=== PATIENT | female | born 1960 | race Caucasian/White ===

== ENCOUNTER 2016-12-05 14:22 | Emergency (ER) | payer OTHER ==
[2016-12-05 14:42] VITALS: BP 103/49; PULSE 79; TEMP 99.1; BMI 25.0
--- NOTE | 2016-12-05 14:58 | PDOC ---
History of Present Illness - History of Present Illness Initial Comments: 12/05/16 15:06 The patient is a 56 year old female with a PMHx of epilepsy, anxiety, PTSD, bipolar disorder who presents to the ED with anxiety, migraines and tremors for a week. The patient reports that she recently moved to [place] to take care of her grandchild. She is in the process of changing doctors and ran out of her medications last week. Since then, she had one seizure last week. She reports her seizures are usually brought on by stress. She reports that her anxiety and seizures are well controlled, but without her medication she has been very nervous. She normally is on Kepra, Topamax, and Vimpat. She denies chest pain, shortness of breath, palpitations. The patient denies fever, chills, nausea, vomiting, diarrhea, and constipation. <Melanie Adams - Last Filed: 12/05/16 15:06> <Abhay Gage - Last Filed: 12/05/16 15:33> - General Chief Complaint: RX Refill Stated Complaint: PANIC ATTACK/RAN OUT OF MEDS. Time Seen by Provider: 12/05/16 14:43 Past History <Melanie Adams - Last Filed: 12/05/16 15:06> - Past Medical History Asthma: Yes Cancer: Yes (OVARIES) GI Disorders: Yes (gerd,diverticulitis without perforation,abscess or bleeding.) Hypercholesterolemia: Yes Psychiatric Problems: Yes (aNXIETY) Other medical history: periodic headache syndrome,vitmin d deficiency - Surgical History Cholecystectomy: Yes - Psycho/Social/Smoking Cessation Hx Anxiety: Yes Suicidal Ideation: No Smoking History: Current every day smoker Number of Cigarettes Smoked Daily: 20 Information on smoking cessation initiated: No Hx Alcohol Use: No Drug/Substance Use Hx: No Substance Use Type: None <Abhay Gage - Last Filed: 12/05/16 15:33> - Past Medical History Allergies/Adverse Reactions: Allergies Allergy/AdvReac Type Severity Reaction Status Date / Time amoxicillin AdvReac Rash Verified 12/05/16 14:35 cyclobenzaprine HCl AdvReac Hives Verified 12/05/16 14:35 [From Flexeril] Home Medications: Ambulatory Orders Albuterol Sulfate Inhaler - [Ventolin HFA Inhaler -] 1 - 2 inh PO Q4H 12/05/16 Budesonide/Formeterol Fumarate [SYMBICORT 160/4.5mcg -] 2 inh PO BID 12/05/16 Chlorzoxazone [Lorzone] 750 mg PO ASDIR 12/05/16 Duloxetine HCl [Cymbalta] 30 mg PO DAILY 12/05/16 Gabapentin 600 mg PO TID 12/05/16 Lacosamide [Vimpat -] 100 mg PO BID 12/05/16 Lacosamide [Vimpat -] 100 mg PO BID #20 tablet MDD 2 12/05/16 Levetiracetam [Keppra -] 2 tab PO DAILY 12/05/16 Levetiracetam [Keppra -] 500 mg PO AM 12/05/16 Lorazepam [Ativan] 1 mg PO TID #20 tablet MDD 3 12/05/16 Lorazepam [Ativan] 1 mg PO TID PRN 12/05/16 Nicotine Patch [Nicoderm Patch -] 1 patch TD DAILY 12/05/16 Quetiapine Fumarate [Seroquel -] 200 mg PO HS 12/05/16 Topiramate [Topamax -] 200 mg PO BID 12/05/16 Review of Systems - Review of Systems Comments:: 12/05/16 15:06 CONSTITUTIONAL: Absent: fever, no chills, no fatigue EYES: Absent: visual changes ENT: Absent: ear pain, no sore throat CARDIOVASCULAR: Absent: chest pain, no palpitations RESPIRATORY: Absent: cough, no SOB GI: Absent: abdominal pain, no nausea, no vomiting, no constipation, no diarrhea GENITOURINARY: Absent: dysuria, no frequency, no hematuria MUSCULOSKELETAL: Absent: back pain, no arthralgia, no myalgia SKIN: Absent: rash NEURO: Present: migraines, seizures, tremors <Melanie Adams - Last Filed: 12/05/16 15:06> *Physical Exam - Vital Signs Last Vital Signs Temp Pulse Resp BP Pulse Ox 99.1 F 79 18 103/49 97 12/05/16 14:30 12/05/16 14:30 12/05/16 14:30 12/05/16 14:30 12/05/16 14:30 - Physical Exam Comments: 12/05/16 15:06 GENERAL: Well-appearing, well-nourished. No apparent distress. HEENT: Pupils are 4 mm, round and reactive. Normocephalic, atraumatic. EOM intact. CARDIOVASCULAR: Normal S1, S2. Regular rate and rhythm. PULMONARY: Clear to auscultation bilaterally. ABDOMEN: Soft, non-distended, non-tender. EXTREMITIES: Normal ROM in all four extremities. No gross deformities. SKIN: Warm, dry. No rash NEUROLOGICAL: No focal neurological deficits. Fully alert and oriented. <Melanie Adams - Last Filed: 12/05/16 15:06> - Vital Signs Last Vital Signs Temp Pulse Resp BP Pulse Ox 99.1 F 79 18 103/49 97 12/05/16 14:30 12/05/16 14:30 12/05/16 14:30 12/05/16 14:30 12/05/16 14:30 <Abhay Gage - Last Filed: 12/05/16 15:33> Medical Decision Making - Medical Decision Making 12/05/16 15:30 Physical exam is normal. Including complete neurologic. Pupils are 4 mm reactive , fundi benign. Patient is fully ambulatory. She states she had her first grand mal seizure in quite a while one week ago when she ran out of her. She requests a refill of that along with Ativan. She has her other medications. She is scheduled to see Dr. Emanuel first visit in 2 weeks after not having a PM[place] supply of her Vimpat and Ativan were refilled. She is encouraged to follow up with her primary physician and referred to a neurologist, being told that neurologist evaluation and ongoing treatment is mandatory. <Abhay Gage - Last Filed: 12/05/16 15:33> *DC/Admit/Observation/Transfer - Attestations Scribe Attestion: 12/05/16 15:07 Documentation prepared by Melanie Adams, acting as center medical specialist for Abhay Varela MD. <Melanie Adams - Last Filed: 12/05/16 15:06> - Discharge Dispostion Admit: No <Abhay Gage - Last Filed: 12/05/16 15:33> Diagnosis at time of Disposition: Anxiety Epilepsy Qualifiers: Epilepsy type: generalized idiopathic Intractability: not intractable Status epilepticus: without status epilepticus Qualified Code(s): G40.309 - Generalized idiopathic epilepsy and epileptic syndromes, not intractable, without status epilepticus - Discharge Dispostion Disposition: HOME Condition at time of disposition: Stable - Prescriptions Prescriptions: Lorazepam [Ativan] 1 mg PO TID #20 tablet MDD 3 Lacosamide [Vimpat -] 100 mg PO BID #20 tablet MDD 2 - Referrals Referrals: Amish Mclaughlin MD [Staff Physician] - 1 week - Patient Instructions Printed Discharge Instructions: DI for Seizure Disorder -- Adult, DI for Anxiety -- Adult Additional Instructions: You must see a neurologist as soon as possible for further examination and treatment.
== END 2016-12-05 15:28 | disposition home or self-care (01) ==
LOC: FER 14:22
DX: G40.309 Generalized idiopathic epilepsy and epileptic syndromes, not intractable, without status epilepticus (principal); F41.9 Anxiety disorder, unspecified; F43.10 Post-traumatic stress disorder, unspecified; F31.9 Bipolar disorder, unspecified; G40.909 Epilepsy, unspecified, not intractable, without status epilepticus; J45.909 Unspecified asthma, uncomplicated; Z85.43 Personal history of malignant neoplasm of ovary; F17.210 Nicotine dependence, cigarettes, uncomplicated
CPT/HCPCS: 99281-25

== ENCOUNTER 2019-02-04 18:04 | Inpatient (IN) | payer OTHER ==
[2019-02-04] MEDS ORDERED: ACETAMINOPHEN INJECTION 100 ML IVPB ONE (18:42)
[2019-02-04] MEDS ORDERED: ACETAMINOPHEN 1000 MG/100 ML VIAL (NON FORMULARY) IVPB ONE (18:42)
[2019-02-04 18:59] LABS: BASO % 0.5 % (0-2.0); HEMATOCRIT 41.1 % (32.4-45.2); HEMOGLOBIN 12.8 GM/dl (10.7-15.3); MCH 27.9 pg (25.7-33.7); MCHC 31.1 g/dl (32.0-36.0); MEAN CELL VOLUME 89.8 fl (80-96); MEAN PLT VOLUME 8.6 fl (7.5-11.1); MONO % 6.9 % (3.8-10.2); NEUT % 72.6 % (42.8-82.8); PLATELET COUNT 293 K/MM3 (134-434); RBC 4.58 M/mm3 (3.60-5.2); RDW 13.3 % (11.6-15.6); WHITE BLOOD COUNT 12.2 K/mm3 (4.0-10.8)
[2019-02-04] MEDS ORDERED: SODIUM CHLORIDE 1,000 ML IV STA (19:06)
[2019-02-04 19:14] LABS: BILIRUBIN,TOTAL 0.3 mg/dl (0.2-1); CALCIUM 9.1 mg/dl (8.5-10); CREATININE 1.1 mg/dl (0.55-1.3); POTASSIUM 3.4 mmol/L (3.5-5.1); TOT PROT 7.5 g/dl (6.4-8.2)
[2019-02-04] MEDS ORDERED: ALBUTEROL SO4 0.083% IH SOL 2.5 MG/3 ML VIAL.NEB. NEB PRN (19:59)
[2019-02-04] MEDS ORDERED: SODIUM CHLORIDE 1,000 ML IV SCH (20:00)
[2019-02-04] MEDS ORDERED: ACETAMINOPHEN 325 MG TABLET (FP) PO PRN (20:55)
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
[2019-02-04] MEDS ORDERED: LORazepam 1 MG TABLET PO PRN (21:51)
[2019-02-04] MEDS ORDERED: POTASSIUM CHLORIDE TABS 20 MEQ TABLET.ER (FP) PO ONE (21:56)
[2019-02-04] MEDS ORDERED: QUEtiapine FUMARATE 200 MG TABLET PO SCH (22:00)
[2019-02-04] MEDS ORDERED: DICYCLOMINE HCL 20 MG TABLET PO SCH (22:00)
[2019-02-04 22:12] VITALS: BMI 25.2
[2019-02-04] MEDS: GABAPENTIN 300 MG CAPSULE (FP) PO SCH (22:19)
[2019-02-04] MEDS: CALCIUM 500MG/VIT-D 200 UNITS COMBO TABLET (FP) PO SCH (22:20)
[2019-02-04] MEDS: LACOSAMIDE 50 MG TABLET PO SCH (22:20)
[2019-02-04] MEDS: HEPARIN NA (PORCINE) 5,000 UNITS/ML 1ML VIAL SQ SCH (22:20)
[2019-02-05] MEDS: BUDESONIDE/FORMETEROL FUMARATE 160/4.5 mcg INHALER IH SCH ×2 (00:05→09:36)
[2019-02-05] MEDS: TOPIRAMATE 200 MG TABLET (FP) PO SCH ×2 (00:05→09:35)
[2019-02-05] MEDS: LITHIUM CARBONATE 300 MG CAPSULE (FP) PO SCH ×2 (00:05→09:35)
[2019-02-05 03:49] VITALS: BP 101/50; PULSE 91; TEMP 98.2
[2019-02-05] MEDS: GABAPENTIN 300 MG CAPSULE (FP) PO SCH (05:56)
[2019-02-05] MEDS ORDERED: LORazepam 0.5 MG TABLET PO PRN (08:03)
[2019-02-05 09:08] LABS: HEMATOCRIT 33.4 % (32.4-45.2); MCH 29.3 pg (25.7-33.7); MEAN CELL VOLUME 88.8 fl (80-96); MEAN PLT VOLUME 8.6 fl (7.5-11.1); PLATELET COUNT 209 K/MM3 (134-434); RBC 3.76 M/mm3 (3.60-5.2); RDW 13.1 % (11.6-15.6); WHITE BLOOD COUNT 8.1 K/mm3 (4.0-10.8)
[2019-02-05 09:18] LABS: ALBUMIN 3.2 g/dl (3.4-5.0); BILIRUBIN,TOTAL 0.5 mg/dl (0.2-1); CALCIUM 8.4 mg/dl (8.5-10); CREATININE 0.9 mg/dl (0.55-1.3); MAGNESIUM 2.3 mg/dL (1.8-2.4); POTASSIUM 4.1 mmol/L (3.5-5.1); TOT PROT 6.3 g/dl (6.4-8.2)
[2019-02-05] MEDS ORDERED: PT OWN MED DRAWER 7, Y5N ONE ×3 (09:26→12:48)
[2019-02-05] MEDS: LACOSAMIDE 50 MG TABLET PO SCH (09:35)
[2019-02-05] MEDS: CALCIUM 500MG/VIT-D 200 UNITS COMBO TABLET (FP) PO SCH (09:35)
[2019-02-05] MEDS: HEPARIN NA (PORCINE) 5,000 UNITS/ML 1ML VIAL SQ SCH (09:36)
[2019-02-05] MEDS ORDERED: DULoxetine HCL 30 MG CAPSULE.DR PO SCH (10:00)
[2019-02-05] MEDS ORDERED: levETIRAcetam 500 MG TABLET (FP) PO SCH (10:00)
[2019-02-05] MEDS ORDERED: DICYCLOMINE HCL 10 MG CAPSULE PO SCH (10:00)
[2019-02-05] MEDS ORDERED: POTASSIUM CHLORIDE TABS 10 MEQ TABLET.ER (FP) PO SCH (10:00)
[2019-02-05] MEDS ORDERED: PANTOPRAZOLE 40 MG TABLET (FP) PO SCH (10:00)
[2019-02-05] MEDS ORDERED: LIDOCAINE 5% TOPICAL PATCH TP SCH (10:00)
--- NOTE | 2019-02-05 10:11 | EKG ---
Test Reason : Blood Pressure : / mmHG Vent. Rate : 095 BPM Atrial Rate : 095 BPM P-R Int : 126 ms QRS Dur : 076 ms QT Int : 344 ms P-R-T Axes : 027 060 259 degrees QTc Int : 432 ms NORMAL SINUS RHYTHM ABNORMAL ECG NO PREVIOUS ECGS AVAILABLE Confirmed by RIA SABA MD ([id number]) on 02/05/2019 10:11:32 AM Referred By: MD DEMARCO Confirmed By:RIA SABA MD
--- NOTE | 2019-02-05 11:06 | DS ---
Physical Exam: SUBJECTIVE: Patient seen and examined OBJECTIVE: Vital Signs Period Temp Pulse Resp BP Sys/Plasencia Pulse Ox Last 24 Hr 98.2 F-101.9 F 72-107 16-20 95-101/50-65 92-96 PHYSICAL EXAM GENERAL: The patient is awake, alert, and fully oriented, in no acute distress. HEAD: Normal with no signs of trauma. EYES: PERRL, extraocular movements intact, sclera anicteric, conjunctiva clear. ENT: Ears normal, nares patent, oropharynx clear without exudates, moist mucous membranes. NECK: Trachea midline, full range of motion, supple. LUNGS: Breath sounds equal, clear to auscultation bilaterally, no wheezes, no crackles, no accessory muscle use. HEART: Regular rate and rhythm, S1, S2 without murmur, rub or gallop. ABDOMEN: Soft, nontender, nondistended, normoactive bowel sounds, no guarding, no rebound, no hepatosplenomegaly, no masses. EXTREMITIES: 2+ pulses, warm, well-perfused, no edema. NEUROLOGICAL: Cranial nerves II through XII grossly intact. Normal speech, gait not observed. PSYCH: Normal mood, normal affect. SKIN: Warm, dry, normal turgor, no rashes or lesions noted. LABS Laboratory Results - last 24 hr 02/04/19 02/04/19 02/04/19 18:40 18:40 18:40 WBC 12.2 H RBC 4.58 Hgb 12.8 Hct 41.1 MCV 89.8 MCH 27.9 MCHC 31.1 L RDW 13.3 Plt Count 293 MPV 8.6 Absolute Neuts (auto) 8.9 Neutrophils % 72.6 Lymphocytes % 18.0 Monocytes % 6.9 Eosinophils % 2.0 Basophils % 0.5 Sodium 137 Potassium 3.4 L Chloride 108 H Carbon Dioxide 21 Anion Gap 8 BUN 13.0 Creatinine 1.1 Est GFR (CKD-EPI)AfAm 65.00 Est GFR (CKD-EPI)NonAf 56.08 Random Glucose 112 H Lactic Acid Calcium 9.1 Magnesium Total Bilirubin 0.3 AST 21 ALT 14 Alkaline Phosphatase 57 Creatine Kinase 54 Troponin I < 0.03 Total Protein 7.5 Albumin 4.0 Urine Color Urine Appearance Urine pH Urine Protein Urine Glucose (UA) Urine Ketones Urine Blood Urine Nitrite Urine Bilirubin Urine Urobilinogen Ur Leukocyte Esterase Urine RBC Urine WBC Urine Bacteria 02/04/19 02/04/19 02/05/19 18:40 18:40 07:00 WBC 8.1 RBC 3.76 Hgb 11.0 Hct 33.4 D MCV 88.8 MCH 29.3 MCHC 33.0 RDW 13.1 Plt Count 209 MPV 8.6 Absolute Neuts (auto) Neutrophils % Lymphocytes % Monocytes % Eosinophils % Basophils % Sodium Potassium Chloride Carbon Dioxide Anion Gap BUN Creatinine Est GFR (CKD-EPI)AfAm Est GFR (CKD-EPI)NonAf Random Glucose Lactic Acid 1.6 Calcium Magnesium Total Bilirubin AST ALT Alkaline Phosphatase Creatine Kinase Troponin I Total Protein Albumin Urine Color Yellow Urine Appearance Clear Urine pH 6.5 Urine Protein 1+ H Urine Glucose (UA) Negative Urine Ketones Negative Urine Blood Negative Urine Nitrite Negative Urine Bilirubin Negative Urine Urobilinogen 0.2 Ur Leukocyte Esterase Negative Urine RBC 0-2 Urine WBC 0-2 Urine Bacteria Few 02/05/19 07:30 WBC RBC Hgb Hct MCV MCH MCHC RDW Plt Count MPV Absolute Neuts (auto) Neutrophils % Lymphocytes % Monocytes % Eosinophils % Basophils % Sodium 142 Potassium 4.1 Chloride 117 H Carbon Dioxide 21 Anion Gap 4 L BUN 11.0 Creatinine 0.9 Est GFR (CKD-EPI)AfAm 82.84 Est GFR (CKD-EPI)NonAf 71.48 Random Glucose 85 Lactic Acid Calcium 8.4 L Magnesium 2.3 Total Bilirubin 0.5 AST 15 ALT 13 Alkaline Phosphatase 50 Creatine Kinase Troponin I Total Protein 6.3 L Albumin 3.2 L Urine Color Urine Appearance Urine pH Urine Protein Urine Glucose (UA) Urine Ketones Urine Blood Urine Nitrite Urine Bilirubin Urine Urobilinogen Ur Leukocyte Esterase Urine RBC Urine WBC Urine Bacteria HOSPITAL COURSE: Date of Admission:02/04/19 Date of Discharge: 02/05/19 58 year-old female with a PMH significant for COPD, GERD, peptic ulcer disease, diverticultitis, seizure disorder, bipolar disorder, PTSD/anxietydepression, ovarian cancer s/p TAHBSO, 40+ year smoker quit 3 months ago. Presented to her PCP on 02/04 with report of cough and fever x 2 days. Referred to ED where T101.9 , WBC 12.2k, and CXR with left base infiltrate. Started on levofloxacin. Today patient is afebrile, leukocytosis resolved, hemodynamically stable. PSI < 70, CURB 65 zero. Discharged on PO levofloxacin to complete 10 days of treatment. Minutes to complete discharge: 35 Discharge Summary Reason For Visit: COUGH/PNEUMONIA, UNSPECIFIED ORGANISM Condition: Stable - Instructions - Home Medications Comprehensive Discharge Medication List: Ambulatory Orders Albuterol Sulfate Inhaler - [Ventolin HFA Inhaler -] 1 - 2 inh PO Q4H 12/05/16 Budesonide/Formeterol Fumarate [SYMBICORT 160/4.5mcg -] 2 inh PO BID 12/05/16 Chlorzoxazone [Lorzone] 750 mg PO ASDIR 12/05/16 Duloxetine HCl [Cymbalta] 30 mg PO DAILY 12/05/16 Gabapentin 600 mg PO TID 12/05/16 Lacosamide [Vimpat -] 100 mg PO BID #20 tablet MDD 2 12/05/16 Lacosamide [Vimpat] 100 mg PO BID 12/05/16 Lorazepam [Ativan] 1 mg PO TID #20 tablet MDD 3 12/05/16 Lorazepam [Ativan] 1 mg PO TID PRN 12/05/16 Nicotine Patch [Nicoderm Patch -] 1 patch TD DAILY 12/05/16 Quetiapine Fumarate [Seroquel -] 200 mg PO HS 12/05/16 Topiramate [Topamax -] 200 mg PO BID 12/05/16 levETIRAcetam [Keppra -] 2 tab PO DAILY 12/05/16 levETIRAcetam [Keppra -] 500 mg PO AM 12/05/16 Acetic Acid/Aluminum Acetate [Acetic Acid-Aluminum Drops] 4 drop OT LEFT EAR QID bottle 12/13/16 Albuterol Sulfate [Ventolin Hfa] 2 puff IH [id number] inhaler 12/13/16 Calcium Carbonate/Vitamin D3 [Os-Roman 500-Vit D3 200 Caplet] 1 each PO BID tablet 12/13/16 Dicyclomine HCl 20 mg PO QID tablet 12/13/16 Ergocalciferol (Vitamin D2) [Vitamin D2] 50,000 unit PO WEEKLY capsule Esomeprazole Magnesium 40 mg PO DAILY capsule 12/13/16 [place] Carbonate [Lithobid] 300 mg PO BID tablet 12/13/16 Mag Hydrox/Aluminum Hyd/Simeth [Alum-Mag Hydroxide-Simeth Liq] 10 ml PO Q6H PRN bottle 12/13/16 Potassium Chloride [Klor-Con M10] 10 meq PO DAILY tablet 12/13/16 Simvastatin 40 mg PO HS tablet 12/13/16 SUMAtriptan SUCCINATE [Imitrex] 50 mg PO ASDIR PRN #10 tablet 04/10/17 This patient is new to me today: Yes Date on this admission: 02/05/19 Emergency Visit: Yes ED Registration Date: 02/04/19 Care time: The patient presented to the Emergency Department on the above date and was hospitalized for further evaluation of their emergent condition. Critical Care patient: No - Discharge Referral Referred to [facility] Yes Physician Referral: Sahil Miner MD (Int Med)
[2019-02-05] MEDS ORDERED: ALBUTEROL SO4 8 GM HFA INHALER IH PRN (12:49)
--- NOTE | 2019-02-05 16:52 | EKG ---
Test Reason : Blood Pressure : / mmHG Vent. Rate : 075 BPM Atrial Rate : 075 BPM P-R Int : 130 ms QRS Dur : 072 ms QT Int : 390 ms P-R-T Axes : 033 062 -12 degrees QTc Int : 435 ms NORMAL SINUS RHYTHM NONSPECIFIC T WAVE ABNORMALITY ABNORMAL ECG Confirmed by RIA SABA MD ([id number]) on 02/05/2019 4:51:55 PM Referred By: NEDA WIGGINS Confirmed By:RIA SABA MD
[2019-02-05] MEDS ORDERED: ATORVASTATIN CA 20 MG TABLET (FP) PO SCH (22:00)
[2019-02-05] MEDS ORDERED: QUEtiapine FUMARATE 100 MG TABLET (FP) PO SCH (22:00)
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
== END 2019-02-05 12:53 | disposition home or self-care (01) | DRG 139 ==
LOC: FER 18:04 → FM/S 21:08
PROVIDERS: ADMIT Internal Medicine; ATTEND Nurse Practitioner Acute Care
DX: J18.9 Pneumonia, unspecified organism (principal); J44.9 Chronic obstructive pulmonary disease, unspecified; K21.9 Gastro-esophageal reflux disease without esophagitis; E78.5 Hyperlipidemia, unspecified; F41.8 Other specified anxiety disorders; J45.909 Unspecified asthma, uncomplicated; F43.10 Post-traumatic stress disorder, unspecified; G43.909 Migraine, unspecified, not intractable, without status migrainosus
CPT/HCPCS: 36415; 71045-TC-FY; 80053; 80177; 80178; 81003; 81015; 82550; 83605; 83735; 84484; 85025; 85027; 87040; 87086; 93005; 94640; 99284-25; J0131; J1644; J7030

== ENCOUNTER 2021-12-20 10:35 | Day surgery (SDC) | payer OTHER ==
[2021-12-15 15:56] VITALS: BMI 23.6
[2021-12-20] MEDS ORDERED: BUPIVACAINE HCL/PF 0.25% (2.5MG/ML) 10 ML VIAL ONE (11:36)
[2021-12-20] MEDS ORDERED: PROPOFOL 20 ML ONE ×2 (12:01)
[2021-12-20] MEDS ORDERED: MIDAZOLAM HCL 2 MG/2 ML SINGLE DOSE VIAL ONE ×2 (12:01)
[2021-12-20] MEDS ORDERED: fentaNYL CITRATE 250 MCG/5 ML VIAL ONE (12:01)
[2021-12-20] MEDS ORDERED: HYDROmorphone HCL/PF 1 MG/ML VIAL ONE (12:01)
[2021-12-20] MEDS ORDERED: NEOSTIGMINE METHYLSULFATE 0.5 MG/1 ML - 10 ML MDV ONE (13:03)
[2021-12-20] MEDS ORDERED: oxyCODONE HCL 5 MG TABLET PO PRN (13:38)
[2021-12-20] MEDS ORDERED: ONDANSETRON 4 MG/2 ML VIAL IVPUSH PRN (13:38)
[2021-12-20] MEDS ORDERED: ACETAMINOPHEN 1000 MG/100 ML BAG IVPB PRN (13:39)
[2021-12-20] MEDS ORDERED: LACTATED RINGERS SOLUTION 1,000 ML IV SCH (13:45)
[2021-12-20] MEDS ORDERED: oxyCODONE HCL 5 MG TABLET ONE (14:58)
[2021-12-20 18:39] VITALS: BP 108/66; PULSE 68; TEMP 97.4
== END 2021-12-20 17:45 | disposition home or self-care (01) ==
LOC: FASU 10:35
PROVIDERS: ATTEND Orthopaedic Surgery Hand Surgery
PROC: 0LN70ZZ Release Right Hand Tendon, Open Approach (ICD-10-PCS; 2021-12-20)
PROC: 0LN70ZZ Release Right Hand Tendon, Open Approach (ICD-10-PCS; 2021-12-20)
PROC: 01N40ZZ Release Ulnar Nerve, Open Approach (ICD-10-PCS; principal; 2021-12-20 12:29)
DX: G56.21 Lesion of ulnar nerve, right upper limb (principal); M65.331 Trigger finger, right middle finger; M65.341 Trigger finger, right ring finger
CPT/HCPCS: 94760